=== PATIENT | male | born 1985 | race African-American/Black ===

== ENCOUNTER 2021-02-21 14:42 | Emergency (ER) | payer OTHER, MEDICAID, SELFPAY ==
[2021-02-21 14:56] VITALS: BP 144/88; PULSE 94; RESP 24; TEMP 36.6; O2SAT 100
== END 2021-02-21 15:45 | disposition left against medical advice (07) ==
PROVIDERS: Emergency Provider Emergency Medicine
CPT/HCPCS: 99281